=== PATIENT | female | born 1955 | race Caucasian/White ===

== ENCOUNTER → 2018-05-15 | Outpatient (CLI) | payer OTHER | LOC: M.RAD 05-13 16:00 | DX: M85.89 Other specified disorders of bone density and structure, multiple sites (principal); N63.10 Unspecified lump in the right breast, unspecified quadrant; N63.20 Unspecified lump in the left breast, unspecified quadrant; Z78.0 Asymptomatic menopausal state ==

== ENCOUNTER 2019-05-02 12:46 | Emergency (ER) | payer OTHER ==
[~2019-05-02] VITALS: Ht 157.5 cm; Wt 63.5 kg
[2019-05-02] MEDS ORDERED: LISINOPRIL-HCT1 EACH PO (12:55)
[2019-05-02] MEDS ORDERED: PROTONIX40 M1 PO (12:55)
[2019-05-02] MEDS ORDERED: CYMBALTA20 MG PO (12:55)
[2019-05-02] MEDS ORDERED: ESTRADIOL 1 MG T1 M1 PO (12:55)
[2019-05-02 13:49] LABS: ABSOLUTE EOSINOPHILS 0.3 thou/uL (0.0-0.7); ABSOLUTE LYMPHOCYTES 0.8 thou/uL (0.8-5.3); ABSOLUTE MONOCYTES 0.6 thou/uL (0.0-1.2); ABSOLUTE NEUTROPHILS 3.1 thou/uL (1.6-8.1); EOSINOPHILS 5.8 %; HEMATOCRIT 37.2 % (37.0-47.0); HEMOGLOBIN 12.6 gm/dL (12.0-15.0); LYMPHOCYTES 16.8 %; MCH 33.7 pg (26.0-34.0); MCHC 33.9 g/dL (28.0-37.0); MCV 99.4 fL (80.0-100.0); MPV 8.1 fl. (7.2-11.1); NUCLEATED RBCS 0 /100WBC; PLATELET COUNT* 242 thou/uL (150-400); POLYS 64.4 %; RBC 3.74 mil/uL (4.20-5.00); RDW-CV 12.3 % (10.5-14.5); WBC 4.8 thou/uL (4.0-11.0)
[2019-05-02 13:59] LABS: APTT 25.7 Seconds (25.0-31.3); INR 0.9; PROTIME 9.6 Seconds (9.20-11.50)
[2019-05-02 14:01] LABS: ANION GAP 7 mmol/L (7-16); BUN 13 mg/dL (7-18); CALCIUM 8.8 mg/dL (8.5-10.1); CHLORIDE 99 mmol/L (98-107); CO2 29 mmol/L (21-32); CREATININE 0.7 mg/dL (0.6-1.3); GLUCOSE 108 mg/dL (70-99); POTASSIUM 4.4 mmol/L (3.5-5.1); SODIUM 135 mmol/L (136-145)
[2019-05-02 14:15] LABS: ALBUMIN 3.4 g/dL (3.4-5.0); ALKALINE PHOSPHATASE 97 U/L (46-116); NT-PRO BRAIN NAT PEPTIDE 133 pg/mL (<300); SGOT 25 U/L (15-37); SGPT 27 U/L (30-65); TOTAL BILIRUBIN 0.2 mg/dL (<0.1-1.0); TROPONIN-I LEVEL <0.06 ng/mL (<0.06)
[2019-05-02] MEDS ORDERED: MEDROLDOSEPACK PO (14:48)
[2019-05-02] MEDS ORDERED: VENTOLIN HFA 1818 GM INH (14:48)
[2019-05-02] MEDS ORDERED: AZITHROMYCIN500 MG PO ×2 (14:48→14:54)
[2019-05-02] MEDS ORDERED: PROMETH-CODEIN 65 ML PO (14:52)
[2019-05-02] MEDS ORDERED: IPRAT-ALBUT 0.5-3 ML INH (14:52)
[2019-05-02 15:08] VITALS: BP 115/72
--- NOTE | 2019-05-03 12:22 | EKG ---
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: QUIRINO : 1955 Requested By: Keyonna Dominguez Order Number: [id number] MD: Zay Wu Measurements Intervals [place] Rate: 84 P: 26 [place]: 134 QRS: -5 QRSD: 81 T: 4 QT: 353 QTc: 418 Interpretive Statements Sinus rhythm Low voltage, precordial leads Baseline wander in lead(s) V6 No previous ECG available for comparison Electronically Signed On 05-03-2019 12:22:16 CDT by Zay Wu [email or web address] <ELECTRONICALLY SIGNED> By: Poornima Wu MD, [facility] 05/03/19 1222 1251 1251 Poornima Wu MD, FACC /EPI
== END 2019-05-02 15:09 | disposition home or self-care (01) ==
LOC: M.ERS 12:46
PROVIDERS: Nurse Practitioner Family
DX: J45.901 Unspecified asthma with (acute) exacerbation (principal); I48.91 Unspecified atrial fibrillation; I10 Essential (primary) hypertension; Z88.1 Allergy status to other antibiotic agents; Z88.2 Allergy status to sulfonamides; Z91.041 Radiographic dye allergy status

== ENCOUNTER 2019-05-10 13:11 | Inpatient (IN) | payer OTHER ==
[~2019-05-10] VITALS: Ht 157.5 cm; Wt 64.9 kg
[~2019-05-10 13:11] MED LIST: AZITHROMYCIN500 MG PO; CYMBALTA20 MG PO; ESTRADIOL 1 MG T1 M1 PO; IPRAT-ALBUT 0.5-3 ML INH; LISINOPRIL-HCT1 EACH PO; MEDROLDOSEPACK PO; PROMETH-CODEIN 65 ML PO; PROTONIX40 M1 PO; VENTOLIN HFA 1818 GM INH
[2019-05-10 13:15] VITALS: BP 125/81
[2019-05-10 13:49] LABS: HEMATOCRIT 43.3 % (37.0-47.0); HEMOGLOBIN 14.7 gm/dL (12.0-15.0); MCH 33.9 pg (26.0-34.0); MCV 99.9 fL (80.0-100.0); MPV 7.4 fl. (7.2-11.1); NUCLEATED RBCS 0 /100WBC; PLATELET COUNT* 428 thou/uL (150-400); RBC 4.33 mil/uL (4.20-5.00); RDW-CV 12.4 % (10.5-14.5); WBC 9.8 thou/uL (4.0-11.0)
[2019-05-10 13:57] LABS: APTT 25.2 Seconds (25.0-31.3); INR 0.9; PROTIME 9.7 Seconds (9.20-11.50)
[2019-05-10 14:02] LABS: ANION GAP 9 mmol/L (7-16); BUN 16 mg/dL (7-18); CALCIUM 9.1 mg/dL (8.5-10.1); CHLORIDE 100 mmol/L (98-107); CO2 29 mmol/L (21-32); CREATININE 0.9 mg/dL (0.6-1.3); GLUCOSE 122 mg/dL (70-99); POTASSIUM 4.2 mmol/L (3.5-5.1); SODIUM 138 mmol/L (136-145)
[2019-05-10 14:06] LABS: ALBUMIN 3.8 g/dL (3.4-5.0); ALKALINE PHOSPHATASE 107 U/L (46-116); LIPASE 225 U/L (73-393); MAGNESIUM 1.9 mg/dL (1.8-2.4); NT-PRO BRAIN NAT PEPTIDE 69 pg/mL (<300); SGOT 21 U/L (15-37); SGPT 29 U/L (30-65); TOTAL BILIRUBIN 0.4 mg/dL (<0.1-1.0); TOTAL PROTEIN 7.7 g/dL (6.4-8.2); TROPONIN-I LEVEL <0.06 ng/mL (<0.06)
[2019-05-10 14:17] LABS: ABSOLUTE EOSINOPHILS 0.4 thou/uL (0.0-0.7); ABSOLUTE LYMPHOCYTES 2.1 thou/uL (0.8-5.3); ABSOLUTE MONOCYTES 0.5 thou/uL (0.0-1.2); ABSOLUTE NEUTROPHILS 6.9 thou/uL (1.6-8.1); METAMYELOCYTES 4 %; PLATELET ESTIMATE ADEQUATE
[2019-05-10 16:41] VITALS: BP 116/79
[2019-05-10 16:45] VITALS: BP 121/75
--- NOTE | 2019-05-10 16:45 | NUR ---
ADMISSION: 64Y/O FEMALE ADMITTED TO RM 106 FROM ER FOR RESPIRATORY FAILURE, ASTHMA AND BRONCHITIS. PATIENT STATES SHE HAS HX OF ASTHMA, DX FROM CHILDHOOD. STATES THAT SHE WENT TO AN URGENT CARE CLINIC 2 WEEKS AGO WITH COUGH AND WHEEZING, WAS GIVEN ANTIBX, ZPACK AND NEBS. PATIENT STATES SHE TOOK ENTIRE COURSE AND WAS NOT ANY BETTER. STATES RETURNED TO URGENT CARE CLINIC AND WAS TOLD TO COME TO ER HERE. SEE ASSESSMENT. IV SL SITE NOTED WNL. ASSESSMENT AND ORIENTATION TO POC AND RM DONE. PATIENT STATES VERBALLY OF UNDERSTANDING. ALERT AND ORIENTED X4, O2 2L/NC. LS NOTED DIM, NO WHEEZING AT THIS TIME. PATIENT STATES FEELING A LITTLE BETTER SINCE TX IN ER. INDEP IN RM, SITTING UP IN RECLINER AT THIS TIME. REVIEW OF HOME MEDICATIONS DONE. PATIENT DENIES OTHER NURSING NEEDS AT THIS TIME. CALL LIGHT IN REACH. ~TJRN
[2019-05-10 19:53] VITALS: BP 114/66
[2019-05-10 23:36] VITALS: BP 116/68
[2019-05-11 05:30] VITALS: BP 147/88
[2019-05-11 05:37] LABS: HEMATOCRIT 34.3 % (37.0-47.0); MCH 33.3 pg (26.0-34.0); MCHC 33.8 g/dL (28.0-37.0); MCV 98.6 fL (80.0-100.0); MPV 7.3 fl. (7.2-11.1); RBC 3.47 mil/uL (4.20-5.00); RDW-CV 12.4 % (10.5-14.5); WBC 7.4 thou/uL (4.0-11.0)
[2019-05-11 05:42] LABS: HEMOGLOBIN 11.6 gm/dL (12.0-15.0)
[2019-05-11 05:59] LABS: CALCIUM 8.4 mg/dL (8.5-10.1); CREATININE 0.7 mg/dL (0.6-1.3); MAGNESIUM 1.8 mg/dL (1.8-2.4); POTASSIUM 4.1 mmol/L (3.5-5.1)
--- NOTE | 2019-05-11 06:05 | NUR ---
Alert and oriented x 4. She is up independently in her room. Lungs have wheezes, especially in upper lobes,lower lobes sound diminished. O2 sat 95-97% on 2L n/c. Vitals are stable,she's afebrile.She has been coughing very frequently. She's been unable to sleep. Dr Lloyd notified and new cough syrup was ordered and given. IV in right AC,catheter was bent, it was redressed and cleaned up and straightened up. It flushes well and there is no edema or redness,there is some bruising. Coughing seems to have improved and she is resting.
[2019-05-11 07:40] VITALS: BP 130/77
--- NOTE | 2019-05-11 07:40 | EKG ---
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
[2019-05-11] MEDS ORDERED: XANAX 0.25 MG0.25 MG PO (09:07)
--- NOTE | 2019-05-11 16:11 | NUR ---
PATIENT GIVEN SCHEDULED COUGH SYRUP, NON PROD COUGH NOTED. PULM CONS PLACED, AWAITING THEM TO ROUND. IV RESTARTED TO RIGHT FA. SCHED IV ABX INFUSED ORDERED, SCHED STEROIDS GIVEN. UP AD AGUSTIN. REMAINS ON 2L NC. PRN NAPROXEN GIVEN FOR HEADACHE. UP TO CHAIR FOR MEALS.
[2019-05-11 20:00] VITALS: BP 115/70
[2019-05-12 04:24] LABS: HEMATOCRIT 34.7 % (37.0-47.0); HEMOGLOBIN 11.7 gm/dL (12.0-15.0); MCH 33.7 pg (26.0-34.0); MCHC 33.6 g/dL (28.0-37.0); MCV 100.1 fL (80.0-100.0); MPV 7.7 fl. (7.2-11.1); RBC 3.47 mil/uL (4.20-5.00); RDW-CV 12.6 % (10.5-14.5); WBC 17.6 thou/uL (4.0-11.0)
[2019-05-12 04:30] LABS: CALCIUM 8.7 mg/dL (8.5-10.1); CREATININE 0.8 mg/dL (0.6-1.3); MAGNESIUM 2.1 mg/dL (1.8-2.4); POTASSIUM 3.6 mmol/L (3.5-5.1)
--- NOTE | 2019-05-12 05:36 | NUR ---
PATIENT SLEPT WELL DURING THIS SHIFT. PT UP AD AGUSTIN TO BATHROOM. PT WITH O2 @ 2 LITERS. PT DENIES PAIN/NAUSEA. FREQUENTLY USED ITEMS AND CALL LIGHT WITHIN REACH. SIDERAILS UPX2. WILL CONTINUE TO MONITOR.
[2019-05-12 07:54] VITALS: BP 123/68
--- NOTE | 2019-05-12 14:21 | NUR ---
PT.RESTING IN BED. O2 OFF. SHE SAID THEY WERE DOING A TRIA WITH IT OFF. SHE SAID SHE FELT LIKE HER CHEST WAS GETTING TIGHT. TOLD HER IF IT GOT WORSE TO PUT NURSE CALL LIGHT ON. SHE SAID SHE LIVES WITH HER . SHE IS INDEPENDENT AT HOME BUT HE WOULD HELP HER IF NEEDED. ONLY DME SHE HAS IS A NEBULIZER. CM WILL FOLLOW.
[2019-05-12 16:00] VITALS: BP 120/63
--- NOTE | 2019-05-12 18:21 | NUR ---
PT A&Ox4. VITALS STABLE. IV PATENT. PAIN CONTROLLED WITH TYLENOL. DENIED NAUSEA. UP AD AGUSTIN. CALL LIGHT WITHIN REACH. WILL CONTINUE TO MONITOR.
[2019-05-12 20:20] VITALS: BP 118/67
--- NOTE | 2019-05-13 05:12 | NUR ---
PT A&O X4, VITALS STABLE. O2 SAT 97% RA. MEDS GIVEN ORDERED. PT STATED SHE HAS ABD PAIN WHEN SHE COUGHS. LUNGS WHEEZY. HAD BREATHING TREATMENT Q4H. HOURLY ROUNDING COMPLETED. WILL CONTINUE TO MONITOR.
[2019-05-13 05:34] LABS: HEMATOCRIT 35.6 % (37.0-47.0); HEMOGLOBIN 11.9 gm/dL (12.0-15.0); MCH 33.4 pg (26.0-34.0); MCHC 33.4 g/dL (28.0-37.0); MCV 99.9 fL (80.0-100.0); MPV 7.9 fl. (7.2-11.1); RBC 3.56 mil/uL (4.20-5.00); RDW-CV 12.6 % (10.5-14.5); WBC 13.5 thou/uL (4.0-11.0)
[2019-05-13 05:56] LABS: CALCIUM 8.8 mg/dL (8.5-10.1); CREATININE 0.7 mg/dL (0.6-1.3); MAGNESIUM 2.2 mg/dL (1.8-2.4); POTASSIUM 3.6 mmol/L (3.5-5.1)
[2019-05-13 08:00] VITALS: BP 127/76
[2019-05-13 16:00] VITALS: BP 122/64
[2019-05-13 21:00] VITALS: BP 124/81
--- NOTE | 2019-05-14 05:20 | NUR ---
PT A&O X4, VSS RA. NO C/O PAIN. MEDS GIVEN ORDERED. XANAX GIVEN TWICE THIS SHIFT PER PT REQUEST. PT REPORTED HAVING DIARRRHEA FROM ABX. BREATHING TREATMENT Q4H. HOURLY ROUNDING COMPLETED. WILL CONTINUE TO MONITOR.
[2019-05-14 08:40] VITALS: BP 129/87
--- NOTE | 2019-05-14 10:48 | CON ---
[address] [address] CONSULTATION Name: KARYNALOLA S Room: [address] IN .R.#: [id number] Admission: 05/10/19 Attend Phys: Kaylee Lloyd MD Discharge: Date of : 57 Report #: [id number] THIS REPORT FOR: //name// CC: Kaylee Hemphill DATE OF SERVICE: 05/13/2019 REASON FOR EVALUATION: Respiratory distress, asthma exacerbation. HISTORY OF PRESENT ILLNESS: The patient presented initially on 05/02/2019 with shortness of breath, wheezing, dry cough, was treated for asthma exacerbation. She was treated with steroids, Z-ROMEO, and bronchodilators with improvement. However after she has finished the treatment, she felt sick again with shortness of breath, wheezing, and cough. Her cough is dry, initially had green mucus, had chills, but no fever. At this time, did not complain of chest pain. She was admitted for further evaluation. Her cough today is better. Wheezing is better today, did not cough on my interview. PAST MEDICAL HISTORY: History of recurrent bronchitis, asthma exacerbation, atrial fibrillation, and hypertension. ALLERGIES: CIPROFLOXACIN and BACTRIM. SOCIAL HISTORY: She is a lifelong nonsmoker. Denies any smoking. No alcohol abuse. FAMILY HISTORY: Significant for asthma. REVIEW OF SYSTEMS: A 14-point review of systems; ENT: No runny nose or congestion. CARDIOVASCULAR: Has history of intermittent palpitation. CONSTITUTIONAL: Had chills, but no fever, improved. Otherwise, 14 systems reviewed and negative. PHYSICAL EXAMINATION: GENERAL: The patient is pleasant, not in distress, no wheezing. VITAL SIGNS: Pulse is 80, blood pressure 127/76, she is afebrile, temperature 36.5. HEAD AND NECK: Neck is supple. Oral mucosa is clear. CHEST: Clear to auscultation, had prolonged expiratory phase, scattered wheezing; however, good air movement. CARDIOVASCULAR: Regular rate and rhythm. ABDOMEN: Soft, nontender. EXTREMITIES: No edema. PSYCHIATRIC: [place] [address] CONSULTATION Name: LOLA TRONCOSO Room: [address] IN [facility]#: [id number] Admission: 05/10/19 Attend Phys: Kaylee Lloyd MD Discharge: Date of : 57 Report #: [id number] NEUROLOGIC: No focal deficits grossly. LABORATORY AND OTHER DATABASE: White blood cell count 13.5, hemoglobin 11.9, and platelets 303. Chemistry shows creatinine is 0.7. A chest x-ray, which I have personally reviewed, was clear to without any acute infiltrate. ASSESSMENT: Asthma exacerbation. At this time, the patient has asthma exacerbation, suspect related to recent upper respiratory tract infection. At this time, we will continue steroids. Likely, we will need a long course with significant exacerbation. We will discharge her with prednisone for 10-14 days with tapering. At this time, the patient is clinically improving. She is using albuterol. She has been using albuterol daily before this admission. She follows with Dr. Virk. We would continue azithromycin for 5 days. Recommended to change Solu-Medrol to daily. Moderate persistent asthma, follows with Dr. Virk's office. At this time, her asthma is suboptimally controlled; however, she is not on controller medications. She states she tried different inhalers similar to Symbicort, but had hoarseness. She states that with Advair, she did well. Recommend to start Advair 100/50 on discharge. She agrees to follow up with Dr. Virk. Shortness of breath, she also has history of atrial flutter. Suspect may be contributing to her shortness of breath, agrees to follow up with Cardiology. She states she has followup with Cardiology. PLAN: As above. Her asthma exacerbation is improving. At this time, the patient to follow up with her mammal control agent, Dr. Virk. We do not have more to add, plan as above and discharged on steroids for 14 days and start Advair on discharge and follow up with her mammal control agent, clinically improving. Pulmonary will follow up as needed. We will sign off, but available for questions or if needed. <ELECTRONICALLY SIGNED> By: Mohsen Jane MD 05/14/19 1048 1234 [id number] Gab Jane MD /nt
[2019-05-14 16:00] VITALS: BP 109/63
--- NOTE | 2019-05-14 18:49 | NUR ---
PATIENT PLEASANT AND COOPERATIVE THRU SHIFT. INDEP IN RM. DENIES PAIN X/COUGH. PATIENT STATES +COUGH W/ NO PROD. COUGH NOTED LOOSE. IV SITE WNL. O2 RA. NO SOB W/ ACTIVITY NOTED. PATIENT STATES SHE IS READY TO GO HOME TOMORROW. DENIES CURRENT NURSING NEEDS AT THIS TIME. HRLY ROUNDS DONE. CALL LIGHT IN REACH. ~TJRN
[2019-05-14 19:55] VITALS: BP 138/73
--- NOTE | 2019-05-15 05:10 | NUR ---
PT ALERT AND ORIENTED. O2 SAT 95% RA. MEDS GIVEN ORDERED. NO C/O PAIN. BREATHING TREATMENT Q4H. WILL CONTINUE TO MONITOR.
[2019-05-15 07:28] VITALS: BP 141/78
[2019-05-15] MEDS ORDERED: FLONASE 0.05%50 MCG NASAL (09:01)
[2019-05-15] MEDS ORDERED: PREDNISONE 10 M10 MG PO (09:01)
[2019-05-15] MEDS ORDERED: TESSALON PERLE100 M1 PO (09:01)
[2019-05-15] MEDS ORDERED: ADVAIR 100-501 EACH INH (09:01)
[2019-05-15] MEDS ORDERED: CEFDINIR300 MG PO (09:01)
[2019-05-15] MEDS ORDERED: ROBITUSSIN AC Liquid PO (09:01)
[2019-05-15] MEDS ORDERED: IPRAT-ALBUT 0.5-3 ML INH (09:01)
[2019-05-15] MEDS ORDERED: ACIDOPHILUS1 EAC4 PO (09:01)
[2019-05-15 10:24] VITALS: BP 141/78
[2019-05-15] MEDS ORDERED: ROBITUSSIN100 MG/53 PO (10:32)
[2019-05-15 12:50] VITALS: BP 141/78
== END 2019-05-15 12:10 | disposition home or self-care (01) | DRG 189 ==
LOC: M.ERS 13:11 → M.ORTHSURG 13:34 → M.TBA-ER 13:34 → M.ORTHSURG 16:45
PROVIDERS: Family Medicine; ADMIT Internal Medicine
DX: J96.01 Acute respiratory failure with hypoxia (principal); J45.901 Unspecified asthma with (acute) exacerbation; I48.91 Unspecified atrial fibrillation; I10 Essential (primary) hypertension; Z88.2 Allergy status to sulfonamides; Z88.8 Allergy status to other drugs, medicaments and biological substances; Z88.1 Allergy status to other antibiotic agents; Z91.041 Radiographic dye allergy status; Z82.5 Family history of asthma and other chronic lower respiratory diseases; Z79.899 Other long term (current) drug therapy

== ENCOUNTER 2019-08-07 14:14 | Inpatient (IN) | payer OTHER ==
[~2019-08-07] VITALS: Ht 157.5 cm; Wt 69.9 kg
[2019-08-07] VITALS (11 sets, daily range): BP systolic 58–109; BP diastolic 35–69
[~2019-08-07 14:14] MED LIST changes: +ACIDOPHILUS1 EAC4 PO; +ADVAIR 100-501 EACH INH; +CEFDINIR300 MG PO; +FLONASE 0.05%50 MCG NASAL; +PREDNISONE 10 M10 MG PO; +ROBITUSSIN AC Liquid PO; +ROBITUSSIN100 MG/53 PO; +TESSALON PERLE100 M1 PO; +XANAX 0.25 MG0.25 MG PO
[2019-08-07] MEDS ORDERED: ZANAFLEX4 M1 PO (14:28)
[2019-08-07 14:38] LABS: ABSOLUTE BASOPHILS 0.1 thou/uL (0.0-0.2); ABSOLUTE EOSINOPHILS 0.1 thou/uL (0.0-0.7); ABSOLUTE LYMPHOCYTES 1.9 thou/uL (0.8-5.3); ABSOLUTE MONOCYTES 0.5 thou/uL (0.0-1.2); ABSOLUTE NEUTROPHILS 4.9 thou/uL (1.6-8.1); BASOPHILS 1.1 %; EOSINOPHILS 1.8 %; HEMATOCRIT 36.5 % (37.0-47.0); HEMOGLOBIN 12.3 gm/dL (12.0-15.0); LYMPHOCYTES 25.4 %; MCH 33.2 pg (26.0-34.0); MCHC 33.8 g/dL (28.0-37.0); MCV 98.2 fL (80.0-100.0); MONOCYTES 6.7 %; MPV 8.7 fl. (7.2-11.1); NUCLEATED RBCS 0 /100WBC; PLATELET COUNT* 261 thou/uL (150-400); RBC 3.71 mil/uL (4.20-5.00); RDW-CV 12.8 % (10.5-14.5); WBC 7.5 thou/uL (4.0-11.0)
[2019-08-07 14:48] LABS: CALCIUM 8.2 mg/dL (8.5-10.1); CREATININE 1.1 mg/dL (0.6-1.3); POTASSIUM 3.9 mmol/L (3.5-5.1)
[2019-08-07 14:53] LABS: ALBUMIN 3.5 g/dL (3.4-5.0); TOTAL BILIRUBIN 0.4 mg/dL (<0.1-1.0); TOTAL PROTEIN 6.7 g/dL (6.4-8.2)
--- NOTE | 2019-08-07 16:30 | NUR ---
CENTRAL LINE CATHETER PLACEMENT PLACED PER DR WALTERS, RIGHT NECK
[2019-08-07 19:43] LABS: URINE BILIRUBIN NEGATIVE (Negative); URINE BLOOD NEGATIVE (Negative); URINE CLARITY CLEAR; URINE COLOR YELLOW; URINE GLUCOSE-RANDOM NEGATIVE (Negative); URINE KETONES TRACE (Negative); URINE LEUKOCYTES-REFLEX TRACE (Negative); URINE NITRITE-REFLEX NEGATIVE (Negative); URINE PROTEIN NEGATIVE (Negative); URINE UROBILINOGEN 0.2 E.U./dl (0.2-1.0)
[2019-08-07 19:53] LABS: CRYSTALS None Seen /LPF (None Seen); HYALINE CASTS 4-10 Moderate /LPF (None Seen); SQUAMOUS 4-10 Moderate /LPF (0-3); URINE RBC 0-2 Rare /HPF (0-2); URINE WBC-REFLEX 0-5 Rare /HPF (0-5)
[2019-08-08] VITALS (13 sets, daily range): BP systolic 100–142; BP diastolic 41–82
--- NOTE | 2019-08-08 04:46 | NUR ---
ASSUMED CARE AT 1900H, ON RA AND TOLERATED.BP WAS STABLE.PT ASKED IF SHE CAN HAVE TYLENOL,INFORM HIMS WITH ORDER MADE AND CARRIED OUT.PT WANTS TO TAKE HER HOME MEDS THIS MORNING ESPECIALLY HER CYMBALTA AND PROTONIX.NO DISTRESS NOTED.CONTINUE MONITORING AND TOWARD GOALS.
[2019-08-08 05:01] LABS: HEMATOCRIT 30.4 % (37.0-47.0); HEMOGLOBIN 10.4 gm/dL (12.0-15.0); MCH 33.7 pg (26.0-34.0); MCHC 34.2 g/dL (28.0-37.0); MCV 98.5 fL (80.0-100.0); MPV 9.2 fl. (7.2-11.1); RBC 3.08 mil/uL (4.20-5.00); RDW-CV 12.8 % (10.5-14.5); WBC 4.9 thou/uL (4.0-11.0)
[2019-08-08 05:13] LABS: CALCIUM 7.2 mg/dL (8.5-10.1); CREATININE 0.7 mg/dL (0.6-1.3); POTASSIUM 3.4 mmol/L (3.5-5.1)
--- NOTE | 2019-08-08 13:22 | NUR ---
PT A&O X4. BP WNL. GETS UP TO BSC, STB ASSIST. ZOFRAN GIVEN ONCE FOR NAUSEA. HEATING PAD APPLIED FOR NECK PAIN. TOLERATING DIET. GOOD UOP AND HAD TWO SMALL HARD BMs. REPORT GIVEN TO SHARON NEGRETE.
--- NOTE | 2019-08-08 13:37 | NUR ---
ANGELINA, HENRYUMED CARE OF PT FROM ICU, I AGREE WITH ICU CHARTING AND FINDINGS WILL FOLLOW WITH PLAN OF CARE
[2019-08-09] VITALS: BP 134/67
[2019-08-09 04:00] VITALS: BP 122/62
[2019-08-09 04:46] LABS: ABSOLUTE EOSINOPHILS 0.1 thou/uL (0.0-0.7); ABSOLUTE LYMPHOCYTES 1.7 thou/uL (0.8-5.3); ABSOLUTE MONOCYTES 0.4 thou/uL (0.0-1.2); ABSOLUTE NEUTROPHILS 2.8 thou/uL (1.6-8.1); BASOPHILS 0.5 %; HEMATOCRIT 31.8 % (37.0-47.0); HEMOGLOBIN 10.8 gm/dL (12.0-15.0); LYMPHOCYTES 33.6 %; MCH 33.3 pg (26.0-34.0); MCHC 33.8 g/dL (28.0-37.0); MCV 98.5 fL (80.0-100.0); MONOCYTES 8.1 %; NUCLEATED RBCS 0 /100WBC; PLATELET COUNT* 212 thou/uL (150-400); POLYS 55.8 %; RBC 3.23 mil/uL (4.20-5.00); RDW-CV 12.8 % (10.5-14.5)
[2019-08-09 05:18] LABS: ALBUMIN 2.8 g/dL (3.4-5.0); CALCIUM 7.6 mg/dL (8.5-10.1); CREATININE 0.5 mg/dL (0.6-1.3); POTASSIUM 3.7 mmol/L (3.5-5.1); TOTAL BILIRUBIN 0.3 mg/dL (<0.1-1.0); TOTAL PROTEIN 5.5 g/dL (6.4-8.2)
--- NOTE | 2019-08-09 05:37 | NUR ---
PT IS ABLE TO COMMUNICATE HER NEEDS TO STAFF EFFECTIVELY. SHE HAS DENIED THE NEED FOR PAIN MEDICATION UP TO THIS TIME. PT HAD ONE 15 SEC. RUN OF V-TACH OVERNIGHT WHILE SLEEPING; PT WAS ASYMPTOMATIC, SEE CHART FOR EVENT STRIP. POSSIBLE DISCHARGE LATER TODAY.
[2019-08-09 07:00] VITALS: BP 135/77
--- NOTE | 2019-08-09 11:19 | NUR ---
VSS, ASSUMED CARE IN THE AM, ASSESSMENT PERFORMED AND CHARTED, FALL PRECAUTIONS IN PLACE AND CALL LIGHT IN REACH, PT IS A&O4 AND UP AD AGUSTIN, DENIES ANY PAIN IS TRACING SR ON THE MONITOR, PT GOAL IS TO D/C TO HOME, PT IV AND TELE MONITOR HAS BEEN TAKEN OUT AND D/C PAPERS HAVE BEEN FILLED OUT PT IS WAITING TO BEEN D/C
[2019-08-09] MEDS ORDERED: KEFLEX500 M1 PO (11:39)
[2019-08-09 11:56] VITALS: BP 135/77
--- NOTE | 2019-08-11 10:39 | EKG ---
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 : 1955 Requested By: Joe Alegria Order Number: [id number] MD: Levy Chadwick Measurements Intervals [place] Rate: 70 P: 25 [place]: 158 QRS: -1 QRSD: 86 T: 13 QT: 423 QTc: 457 Interpretive Statements Sinus rhythm Low voltage, precordial leads Nonspecific T abnormalities, anterior leads Diffuse ST segment elevation, consider early repolarization versus pericarditis Baseline wander in lead(s) III,aVL,V4 Compared to ECG 05/10/2019 14:02:54 Low QRS voltage now present T-wave abnormality now present Myocardial infarct finding no longer present Electronically Signed On 08-11-2019 10:39:12 COSTUME TECHNICIAN by Levy Chadwick [email or web address] <ELECTRONICALLY SIGNED> By: Levy Chadwick MD, [facility] 08/11/19 1039 1435 1435 Levy Chadwick MD, FAC /EPI
== END 2019-08-09 12:00 | disposition home or self-care (01) | DRG 314 ==
LOC: M.ERS 14:14 → M.TBA-ER 16:43 → M.ICU 17:00 → M.2W 08-08 12:41
PROVIDERS: Emergency Medicine Emergency Medical Services; ADMIT Internal Medicine
PROC: 02HV33Z Insertion of Infusion Device into Superior Vena Cava, Percutaneous Approach (ICD-10-PCS; principal; 2019-08-07)
DX: I95.9 Hypotension, unspecified (principal); N17.0 Acute kidney failure with tubular necrosis; N39.0 Urinary tract infection, site not specified; J45.909 Unspecified asthma, uncomplicated; I10 Essential (primary) hypertension; F41.9 Anxiety disorder, unspecified; F32.9 Major depressive disorder, single episode, unspecified; N95.9 Unspecified menopausal and perimenopausal disorder; I48.0 Paroxysmal atrial fibrillation; K21.9 Gastro-esophageal reflux disease without esophagitis; T43.215A Adverse effect of selective serotonin and norepinephrine reuptake inhibitors, initial encounter; Z88.2 Allergy status to sulfonamides; Z88.8 Allergy status to other drugs, medicaments and biological substances; Z88.1 Allergy status to other antibiotic agents; Z91.041 Radiographic dye allergy status; Z82.5 Family history of asthma and other chronic lower respiratory diseases; Y92.89 Other specified places as the place of occurrence of the external cause; Z79.899 Other long term (current) drug therapy

== ENCOUNTER → 2019-10-28 | Outpatient (CLI) | payer OTHER ==
[~2019-10-28] MED LIST changes: +KEFLEX500 M1 PO; +ZANAFLEX4 M1 PO
== END ==
LOC: M.LAB 00:16
DX: E87.6 Hypokalemia (principal)

== ENCOUNTER 2021-08-30 12:25 | Emergency (ER) | payer MEDICARE, OTHER ==
[~2021-08-30] VITALS: Ht 160 cm; Wt 60.3 kg
[2021-08-30 13:01] LABS: INFLUENZA A ANTIGEN Negative (Negative); INFLUENZA B ANTIGEN Negative (Negative)
[2021-08-30 13:03] LABS: HEMATOCRIT 43.1 % (37.0-47.0); HEMOGLOBIN 14.2 gm/dL (12.0-15.0); MCH 32.8 pg (26.0-34.0); MCV 99.5 fL (80.0-100.0); MPV 8.8 fl. (7.2-11.1); NUCLEATED RBCS 0 /100WBC; PLATELET COUNT* 383 thou/uL (150-400); RBC 4.34 mil/uL (4.20-5.00); RDW-CV 14.5 % (10.5-14.5); WBC 15.2 thou/uL (4.0-11.0)
[2021-08-30 13:23] LABS: CALCIUM 9.2 mg/dL (8.5-10.1); CREATININE 1.3 mg/dL (0.6-1.3)
[2021-08-30 13:27] LABS: ALBUMIN 4.2 g/dL (3.4-5.0); TOTAL BILIRUBIN 1.2 mg/dL (<0.1-1.0); TOTAL PROTEIN 7.8 g/dL (6.4-8.2)
[2021-08-30 13:31] LABS: ABSOLUTE EOSINOPHILS 0.3 thou/uL (0.0-0.7); ABSOLUTE LYMPHOCYTES 1.5 thou/uL (0.8-5.3); ABSOLUTE MONOCYTES 0.6 thou/uL (0.0-1.2); ABSOLUTE NEUTROPHILS 12.8 thou/uL (1.6-8.1); PLATELET ESTIMATE ADEQUATE
[2021-08-30 13:46] LABS: URINE BLOOD NEGATIVE (Negative); URINE CLARITY CLEAR; URINE COLOR YELLOW; URINE GLUCOSE-RANDOM NEGATIVE (Negative); URINE LEUKOCYTES TRACE (Negative); URINE NITRITE NEGATIVE (Negative); URINE PROTEIN NEGATIVE (Negative); URINE SPECIFIC GRAVITY >= 1.030 (1.005-1.030); URINE UROBILINOGEN 0.2 E.U./dl (0.2-1.0)
[2021-08-30 13:50] LABS: URINE KETONES 3+ (Negative)
[2021-08-30 13:51] LABS: ICTOTEST (BILI CONFIRMATORY) Negative (Negative); URINE BILIRUBIN 2+ (Negative)
[2021-08-30 13:57] LABS: HYALINE CASTS 4-10 Moderate /LPF (None Seen)
[2021-08-30 13:58] LABS: SQUAMOUS >10 Many /LPF (0-3); URINE RBC 0-2 Rare /HPF (0-2)
[2021-08-30 13:59] LABS: BACTERIA 1-9 Few /HPF (None Seen); CRYSTALS None Seen /LPF (None Seen); URINE WBC 0-5 Rare /HPF (0-5)
[2021-08-30 14:56] LABS: CALCIUM 9.4 mg/dL (8.5-10.1); CREATININE 1.2 mg/dL (0.6-1.3); POTASSIUM 4.1 mmol/L (3.5-5.1)
[2021-08-30 15:38] LABS: BE -2.6 mmol/L (-2 to +3); PCO2 VENOUS 52.4 mmHg (41.0-51.0); PO2 VENOUS 34.4 mmHg (35.0-45.0)
[2021-08-30 15:45] LABS: CALCIUM 7.8 mg/dL (8.5-10.1); POTASSIUM 4.9 mmol/L (3.5-5.1)
[2021-08-30 16:09] VITALS: BP 111/70
== END 2021-08-30 16:09 | disposition home or self-care (01) ==
LOC: M.ERS 12:25
PROVIDERS: Family Medicine; Physician Assistant
DX: R11.2 Nausea with vomiting, unspecified (principal); Z20.822 Contact with and (suspected) exposure to COVID-19; R10.9 Unspecified abdominal pain; J45.909 Unspecified asthma, uncomplicated; I48.91 Unspecified atrial fibrillation; I10 Essential (primary) hypertension; F41.9 Anxiety disorder, unspecified; Z79.899 Other long term (current) drug therapy; Z88.1 Allergy status to other antibiotic agents; Z91.041 Radiographic dye allergy status; Z88.2 Allergy status to sulfonamides; Z88.8 Allergy status to other drugs, medicaments and biological substances